=== PATIENT | male | born 1955 | race Caucasian/White ===

== ENCOUNTER 2017-04-24 12:46 | Outpatient (CLI) | payer MEDICARE, MEDICAID ==
[~2017-04-24] VITALS: Ht 180.3 cm; Wt 108.0 kg
[2017-04-24] VITALS (13 sets, daily range): BP systolic 115–173; BP diastolic 63–113; PULSE 86–95; TEMP 98.9
[~2017-04-24 12:46] MED LIST: AMITRIPTYLINE H25 M1 PO; COZAAR100 MG PO; NORVASC 10MG10 MG PO
[2017-04-24] MEDS ORDERED: LIPITOR 10MG10 MG PO (13:35)
[2017-04-24 13:49] LABS: HEMATOCRIT 39.9 % (42.0-52.0); HEMOGLOBIN 13.7 g/dl (13.5-18.0); MEAN CELL VOLUME 88 fl (80.0-100.0); MEAN CORPUSCULAR HEMOGLOBIN 30 pg (27.0-31.0); MEAN CORPUSCULAR HGB CONC 34 g/dl (33.0-37.0); MEAN PLATELET VOLUME 9.4 fl (7.4-10.4); PLATELET COUNT 280 K/mm3 (130-400); RED BLOOD COUNT 4.55 M/mm3 (4.20-5.60); REDCELL DISTRIBUTION WIDTH-CV 13.1 % (11.5-14.5); WHITE BLOOD COUNT 13.1 K/mm3 (4.8-10.8)
[2017-04-24 13:52] LABS: INR 1.1 (0.8-3.0); PROTHROMBIN TIME 12.3 SECONDS (9.7-12.8)
[2017-04-24 14:02] LABS: CALCIUM 9.1 mg/dL (8.4-10.2); CREATININE, serum 0.66 mg/dL (0.66-1.25); POTASSIUM 4.3 mmol/L (3.4-5.0)
== END 2017-04-24 16:00 | disposition home or self-care (01) ==
LOC: COL.RAD 12:46
PROVIDERS: Internal Medicine Interventional Cardiology
DX: I34.0 Nonrheumatic mitral (valve) insufficiency (principal); R09.89 Other specified symptoms and signs involving the circulatory and respiratory systems; I65.22 Occlusion and stenosis of left carotid artery; R53.83 Other fatigue; Z87.891 Personal history of nicotine dependence
CPT/HCPCS: J2250; J3010

== ENCOUNTER 2019-11-07 11:09 | Outpatient (CLI) | payer MEDICARE, MEDICAID ==
[~2019-11-07] VITALS: Ht 180.3 cm; Wt 91.6 kg
[2019-11-07] VITALS (7 sets, daily range): BP systolic 142–178; BP diastolic 76–91; PULSE 74–79; TEMP 98
[~2019-11-07 11:09] MED LIST changes: +CENTRUM SILVER1 CTB PO; +LIPITOR 10MG10 MG PO; +PROAIR HFA0.09 MG/AC IH
[2019-11-07 12:05] LABS: HEMATOCRIT 41.7 % (42.0-52.0); HEMOGLOBIN 13.6 g/dl (13.5-18.0); MEAN CELL VOLUME 87 fl (80.0-100.0); MEAN CORPUSCULAR HEMOGLOBIN 28 pg (27.0-31.0); MEAN CORPUSCULAR HGB CONC 33 g/dl (33.0-37.0); MEAN PLATELET VOLUME 10.2 fl (7.4-10.4); PLATELET COUNT 232 K/mm3 (130-400); RED BLOOD COUNT 4.82 M/mm3 (4.20-5.60); REDCELL DISTRIBUTION WIDTH-CV 14.5 % (11.5-14.5)
[2019-11-07 12:10] LABS: CALCIUM 9.2 mg/dL (8.4-10.2); CREATININE, serum 0.77 (0.66-1.25); POTASSIUM 4.4 mmol/L (3.4-5.0)
[2019-11-07] MEDS ORDERED: GLUCOPHAGE1000 MG PO (12:13)
[2019-11-07] MEDS ORDERED: ZESTRIL 10MG10 MG PO (12:14)
[2019-11-07] MEDS ORDERED: COUMADIN 5MG5 MG/TAB PO (12:15)
[2019-11-07] MEDS ORDERED: DESYREL DIVIDO150 M1 PO (12:15)
[2019-11-07 12:16] LABS: INR 1.8 (0.8-3.0)
[2019-11-07] MEDS ORDERED: COUMADIN 1MG1 MG/TAB PO (12:16)
--- NOTE | 2019-11-07 13:03 | NUR ---
Pt resting in bed. PAULINA complete. VSS
--- NOTE | 2019-11-07 15:00 | NUR ---
Transferred to private car by torsten
--- NOTE | 2019-11-07 15:06 | NUR ---
INT discontinued intact. Discharge instructions given.
== END 2019-11-07 15:00 | disposition home or self-care (01) ==
LOC: COL.RAD 11:09
PROVIDERS: Internal Medicine Cardiovascular Disease
DX: I34.0 Nonrheumatic mitral (valve) insufficiency (principal); R93.1 Abnormal findings on diagnostic imaging of heart and coronary circulation; Z95.2 Presence of prosthetic heart valve; I51.7 Cardiomegaly
CPT/HCPCS: J2704; J7120

== ENCOUNTER 2020-01-16 07:30 | Day surgery (SDC) | payer MEDICARE, MEDICAID ==
[~2020-01-16] VITALS: Ht 180.3 cm; Wt 93.3 kg
[~2020-01-16 07:30] MED LIST changes: +COUMADIN 1MG1 MG/TAB PO; +COUMADIN 5MG5 MG/TAB PO; +DESYREL DIVIDO150 M1 PO; +GLUCOPHAGE1000 MG PO; +ZESTRIL 10MG10 MG PO
[2020-01-16] MEDS ORDERED: PRINIVIL20 MG PO (08:11)
[2020-01-16] MEDS ORDERED: TOPROL XL 25MG25 MG PO (08:12)
[2020-01-16] MEDS ORDERED: DESYREL 50MG50 MG PO (08:12)
[2020-01-16] MEDS ORDERED: GLUCOPHAGE1000 MG PO (08:12)
[2020-01-16 08:13] VITALS: BP 124/71; PULSE 62; TEMP 97.8
[2020-01-16] MEDS ORDERED: FLEXERIL 1010 MG/TAB PO (08:13)
[2020-01-16 09:55] VITALS: BP 92/57; PULSE 58; TEMP 98.3
--- NOTE | 2020-01-16 09:55 | NUR ---
The patient arrived back to [place] [facility] from the endoscopy suite at this time. The patient appears alert and oriented and denies any pain or nausea at this time. Post procedure vital signs were started at this time. The patient agrees to try some coffee and a muffin at this time. Call light is within reach. Will continue to monitor the patient.
[2020-01-16 10:10] VITALS: BP 123/74; PULSE 56
--- NOTE | 2020-01-16 10:10 | NUR ---
The patient has finished his muffin and is drinking his coffee and appears to be tolerating both well. Vital signs appear stable. Call light is within reach. Will continue to monitor the patient.
[2020-01-16 10:25] VITALS: BP 119/62; PULSE 58
--- NOTE | 2020-01-16 10:25 | NUR ---
Discharge instructions were reviewed with the patient at this time. He verbalized understanding and have no questions for the nurse at this time. The patient's IV was removed and a pressure dressing was applied to the site.
--- NOTE | 2020-01-16 10:45 | NUR ---
The patient was escorted out via wheelchair to a private vehicle by ROBYN Arthur. The patient's belongings and discharge paperwork were sent with him. The patient's son arrived about 1105 to pick the patient up and drive him home.
== END 2020-01-16 10:45 | disposition home or self-care (01) ==
LOC: SDCO 07:30
DX: R93.3 Abnormal findings on diagnostic imaging of other parts of digestive tract (principal); R10.9 Unspecified abdominal pain; R19.7 Diarrhea, unspecified; K57.30 Diverticulosis of large intestine without perforation or abscess without bleeding; K21.9 Gastro-esophageal reflux disease without esophagitis; I34.0 Nonrheumatic mitral (valve) insufficiency; I10 Essential (primary) hypertension; E11.9 Type 2 diabetes mellitus without complications; Z79.84 Long term (current) use of oral hypoglycemic drugs; F32.9 Major depressive disorder, single episode, unspecified; Z79.01 Long term (current) use of anticoagulants; Z79.899 Other long term (current) drug therapy; I27.20 Pulmonary hypertension, unspecified; G89.29 Other chronic pain; Z88.0 Allergy status to penicillin; Z88.8 Allergy status to other drugs, medicaments and biological substances
CPT/HCPCS: J2704; J7030

== ENCOUNTER 2020-10-05 10:16 | Emergency (ER) | payer MEDICARE, MEDICAID ==
[~2020-10-05] VITALS: Ht 180.3 cm; Wt 97.3 kg
[~2020-10-05 10:16] MED LIST changes: +ALDACTONE 25MG25 M1 PO; +DESYREL 50MG50 MG PO; +EPA FISH OIL1 SGL PO; +FLEXERIL 1010 MG/TAB PO; +MAG-OX 400400 MG/TAB PO; +NORVASC 5MG5 MG/TAB PO; +PRINIVIL20 MG PO; +TOPROL XL 25MG25 MG PO
[2020-10-05 10:28] VITALS: TEMP 97.7
[2020-10-05 11:41] LABS: COLLECTION METHOD CLEAN CATCH
[2020-10-05 12:01] LABS: MUCOUS Present /lpf; PH 6 (5-8); SQUAMOUS EPITHELIAL None Seen /hpf; URINE APPEARANCE Clear; URINE BACTERIA None Seen /hpf; URINE BILIRUBIN Negative (NEGATIVE); URINE BLOOD 1+ (NEGATIVE); URINE COLOR Yellow; URINE GLUCOSE Negative (NEGATIVE); URINE KETONE Negative (NEGATIVE); URINE LEUKOCYTE ESTERASE Negative (NEGATIVE); URINE NITRATE Negative (NEGATIVE); URINE PROTEIN(semi-quant) Negative (NEGATIVE); URINE RBC 0-2 /hpf; URINE UROBILINOGEN Negative (NEGATIVE)
[2020-10-05] MEDS ORDERED: LIORESAL 1010 MG/TAB PO (12:13)
[2020-10-05] MEDS ORDERED: NAPROSYN500 MG PO (12:13)
[2020-10-05 12:26] VITALS: BP 126/75; PULSE 74
== END 2020-10-05 12:26 | disposition home or self-care (01) ==
LOC: COL.ER 10:16
PROVIDERS: Nurse Practitioner Primary Care
DX: M62.830 Muscle spasm of back (principal); G89.29 Other chronic pain; I10 Essential (primary) hypertension; E11.9 Type 2 diabetes mellitus without complications; F17.210 Nicotine dependence, cigarettes, uncomplicated; Z95.4 Presence of other heart-valve replacement; Z88.0 Allergy status to penicillin; Z88.8 Allergy status to other drugs, medicaments and biological substances; Z79.84 Long term (current) use of oral hypoglycemic drugs
CPT/HCPCS: J1885